=== PATIENT | female | born 1980 | race Caucasian/White ===

== ENCOUNTER 2025-03-18 15:38 | Emergency (ER) | payer BC ==
[~2025-03-18] VITALS: Ht 167.6 cm; Wt 100.8 kg
[2025-03-18 17:54] VITALS: BP 136/92; PULSE 89; O2SAT 100
[2025-03-18] MEDS: TETanus/Pertussis (Acell)/Diphther VAC/PF (Tdap-Adult) 0.5ml syringe IMVAC ONE (18:37)
[2025-03-18] MEDS ORDERED: SULF1TAB49 PO (18:38)
[2025-03-18] MEDS ORDERED: CEPH-585 PO (18:38)
--- NOTE | 2025-03-18 18:38 | Physician Documentation ---
History of Present Illness ~ Chief Complaint: Knee Pain Stated Complaint: KNEE PAIN Time Seen by MD: 17:43 Source: patient Mode of Arrival: POV Exam Limitations: no limitations HPI 44 y/o a female with chief complaint left knee pain which she states she woke up with this morning. Two days ago she was gardening but does not recall injuring her knee but thinks that she may have kneeled on something. Denies any pain in the knee joint states the pain is all on the outside of the patella where she has redness and swelling. Has never had anything like this before. Last tetanus was more than 10 years ago. Able to bear weight on her knee normally. States that the pain is just worse when there is any direct pressure to her knee. Tetanus witin 5 years: No Medication Reconciliation Allergies: Coded Allergies: No Known Allergies (Unverified , 03/18/25) Past Medical History Last Menstrual Period: Mar 16, 2025 Review of Systems All Other Systems at this time: Reviewed and Negative Physical Exam Vital Signs: Temperature: 98.2, Heart Rate: 89, Respiratory Rate: 16, BP: 136/92, Pulse Oximetry: 100, Weight: 100.750 Oxygen Flow Rate: 0 Physical Exam General Appearance: Alert, WD/WN. NAD. HEENT: NCAT, PERRL, EOMI. Neck: Supple, trachea midline. Cardiovascular: RRR. No m/r/g. Lungs: CTAB. Breathing unlabored Extremities: Left knee swelling over the patella with defined area of erythema. in the center of the erythema there is a pustule which is ttp. pustule is indurated with central area of fluctuance. arom of knee joint full. no proximal erythematous streak up leg. Skin: Warm/dry, normal color Neurological: Alert and oriented x4, normal gait. Psychiatric: Affect congruent with mood. Procedures I&D Procedure : Site: knee Anesthesia: Lidocaine w/ Epi Volume Anesthetic (mls): 2 Blade Size: 11 Incision: pus drained, blood drained Tolerated Procedure Well?: yes, no complications Progress Results/Orders Results/Orders Orders - KAMILLA DICKEY Cult (Aer) Routine C&S+Gram St (03/18/25 18:17) Laceration/I&D Tray Set Up (03/18/25 18:17) Completed Orders - KAMILLA DICKEY Tetanus/Pertuss/Diph Acell/Pf (Boostrix (03/18/25 18:20) Lidocaine 1% W/Epi 1:100,000 (Xylocaine (03/18/25 18:20) Vital Signs 03/18/25 03/18/25 15:52 17:54 Temp 98.2 Pulse 94 89 Resp 18 16 B/P (MAP) 154/93 136/92 (107) Pulse Ox 100 100 O2 Flow Rate 0 Medical Decision Making Knee Diff Dx:Considerations: Include: Abrasion, Arthritis, Contusion, DJD, Frac ture-femur, Fracture-fibula, Fracture-patella, Fracture-tibia, Gout, Hematoma, Laceration, Meniscus injury, Neurovascular injury, Open fracture, Rheumatoid arthritis, Septic, Sprain, Sprain-MCL, Sprain-LCL, Sprain-ACL, Sprain-PCL Departure Time of Disposition: 18:37 Disposition: 01 HOME / SELF CARE / HOMELESS Impression: Primary Impression: Knee pain Qualified Codes: M25.562 - Pain in left knee Additional Impression: Cellulitis and abscess of left lower extremity Condition: Stable Discharge Instructions: Cellulitis, Adult, [id number] Additional Instructions: START ANTIBIOTIC PRESCRIBED IF WORSENING OF ERYTHEMA, INCREASING PAIN, OR ANY OTHER CONCERNING SYMPTOMS RETURN TO ER Referrals: NO PRIMARY CARE PROVIDER (PCP) Prescriptions Cephalexin*Monohydrate* (Keflex*) 500 Mg Capsule 1 CAP PO QID for 10 Days, #40 CAP Prov: KAMILLA DICKEY 03/18/25 Sulfamethoxazole/Trimethoprim (Bactrim Ds Tablet) 800 Mg-160 Mg Tablet 1 TAB PO Q12H for 10 Days, #20 TAB Prov: KAMILLA DICKEY 03/18/25 Education Educated: Patient Educated regarding: diagnosis, treatment, need for follow up Signature Scribtoma Signature: X Attestation: KAMILLA LUNDY Mar 18, 2025 18:38
[2025-03-18] MEDS: LIDOcaine 1% W/epiNEPHrine 1:100,000 20ml vial IJ ONE (18:43)
[2025-03-18] MEDS: sulfamethoxazole/trimethoprim DS (800/160mg) tablet PO ONE (19:00)
[2025-03-18 19:04] VITALS: RESP 16
[2025-03-18 19:30] VITALS: TEMP 98.2
== END 2025-03-18 19:31 | disposition home or self-care (01) ==
LOC: ER 15:39
DX: L02.416 Cutaneous abscess of left lower limb (principal); L03.116 Cellulitis of left lower limb
CPT/HCPCS: 10060; 90471; 90715; 99283